=== PATIENT | female | born 1945 | race Caucasian/White ===

== ENCOUNTER 2017-10-01 01:39 | Observation (INO) | END 2017-10-02 17:25 | disposition home or self-care (01) ==

== ENCOUNTER 2018-05-18 22:55 | Inpatient (IN) | END 2018-06-05 21:18 | DRG 853 ==

== ENCOUNTER 2018-06-05 22:52 | Emergency (ER) | END 2018-06-06 04:51 | disposition home or self-care (01) ==

== ENCOUNTER 2018-06-16 17:37 | Inpatient (IN) | END 2018-06-19 14:45 | DRG 919 ==